=== PATIENT | male | born 1960 | race Caucasian/White ===

== ENCOUNTER 2023-12-08 07:08 | Outpatient (CLI) | payer BC, SELFPAY ==
--- NOTE | 2023-12-08 08:42 | W.ANESCHARGE ---
Anesthesia Charges Start Date/Time Anesthesia Start Date: 12/08/23 Anesthesia Start Time: 07:58 Stop Date/Time Anesthesia Stop Date: 12/08/23 Anesthesia Stop Time: 08:36
--- NOTE | 2023-12-08 09:21 | W.ANESCHARGE ---
Anesthesia Charges Start Date/Time Anesthesia Start Date: 12/08/23 Anesthesia Start Time: 07:58 Stop Date/Time Anesthesia Stop Date: 12/08/23 Anesthesia Stop Time: 08:36
== END 2023-12-08 07:09 | disposition home or self-care (01) ==
PROVIDERS: PCP Surgery; Visit Provider Internal Medicine Gastroenterology
DX: R19.5 Other fecal abnormalities (principal); K63.5 Polyp of colon
CPT/HCPCS: 00811; 45385; 88305; J2704